=== PATIENT | female | born 1970 | race Caucasian/White ===

== ENCOUNTER → 2017-01-17 | Outpatient (CLI) | payer OTHER ==
[2014-05-16 00:52] VITALS: BP 118/67
--- NOTE | 2017-01-17 16:31 | Diagnostic Imaging Report ---
CAILIN WILLIAM [facility] [address] [address] Report Submission Date: Jan 17, 2017 4:04:26 PM CDT Patient Study Name: ARTUR MACDONALD Date: Jan 17, 2017 2:58:20 PM CDT Modality Type: CR Gender: F Description: LOWER EXTREMITY : 74 Institution: [facility] Physician: CAILIN WILLIAM Examination: Plain film heel History: Discomfort. Findings: 2 views the calcaneus demonstrates normal cortical margins. Inferior and posterior calcaneal spurs. No joint effusion nor other soft tissue abnormality. Impression: Calcaneal spurs. If there is a concern for plantar fasciitis or Achilles tendon inflammation consider obtaining MRI. Electronically signed on Jan 17, 2017 4:04:26 PM CDT by: Saurav DONIS
== END ==
LOC: RAD 14:57
PROVIDERS: ATTEND Physician Assistant
DX: M79.672 Pain in left foot (principal)
CPT/HCPCS: 73650

== ENCOUNTER 2017-06-24 03:40 | Emergency (ER) | payer BC, OTHER ==
[2017-06-24] MEDS: KETOROLAC TROMETHAMINE 30 MG/1ML VIAL IVP ONE (03:50)
[2017-06-24] MEDS: ONDANSETRON HCL/PF 4 MG/ 2ML VIAL IVP ONE (03:52)
[2017-06-24] MEDS: 0.9 % SODIUM CHLORIDE 1,000 ML IV ONE ×2 (03:52→04:50)
[2017-06-24] MEDS: fentaNYL CITRATE/PF 100 MCG/ 2ML AMP ONE (04:00)
[2017-06-24] MEDS: fentaNYL CITRATE/PF 100 MCG/ 2ML AMP IVP ONE ×4 (04:00→06:14)
[2017-06-24] MEDS: TAMSULOSIN HCL 0.4 MG CAP.ER.24H PO ONE ×2 (05:10→05:15)
[2017-06-24 06:23] LABS: APPEARANCE,URINE CLEAR (CLEAR); COLOR,URINE YELLOW (YELLOW); OCCULT BLOOD,URINE TRACE (NEGATIVE); PH URINE 6.5 (5.0 - 8.0); UROBILINOGEN URINE 0.2 Eu (0.2-1.0)
--- NOTE | 2017-06-24 06:26 | Diagnostic Imaging Report ---
BERHANE VELÁSQUEZ ([employer]) - ER [facility] [address] [facility] [address] [place], [place]. [address] Report Submission Date: Jun 24, 2017 5:27:38 AM CDT Patient Study Name: ARTUR MACDONALD Date: Jun 24, 2017 4:41:40 AM CDT Modality Type: CT\SR Gender: F Description: CT ABD/PEL S : 74 Institution: [facility] Physician: BERHANE VELÁSQUEZ ([employer]) - ER CT Abdomen/pelvis without contrast History: RIGHT FLANK PAIN, BLOOD IN URINE, PAIN STARTED APPROX AN HOUR AGO No prior comparison studies Motion artifact. Clear lung bases. No free intraperitoneal air. No acute osseous pathology Cardiomegaly The liver, gallbladder, spleen pancreas are within normal limits. 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 Several pelvic phleboliths are present. No hydronephrosis on the left. Duplicated right renal collecting system, a 3 mm calculus is seen in the distal right ureter at the ureterovesicular junction. There is bladder wall thickening with fat stranding around the urinary bladder. Minimal layering density is noted in the dependent urinary bladder Prominent uterus. Minimal rectal wall thickening, normal appendix. No bowel obstruction. Subcentimeter paraaortic lymph nodes are seen. There is nonspecific fat stranding around the superior mesenteric artery origin. Small hiatal hernia. Impression: 1. 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 2. Fat stranding around the urinary bladder with minimal bladder wall thickening and edema. Minimal layering density within the urinary bladder may be due to presence of blood 3. Double left renal collecting system is seen, it is not clear if the ureters unite distally due to lack of contrast, no left hydronephrosis 4. Cardiomegaly. Normal appendix Electronically signed on Jun 24, 2017 5:27:38 AM CDT by: Amy DONIS
[2017-06-24] MEDS ORDERED: SALINE FLUSH 10 ML DISP.SYRIN IV ONE (06:28)
--- NOTE | 2017-06-24 06:32 | ED Physician Documentation ---
General Adult - HISTORIAN Historian: patient - HPI Stated Complaint: Right Flank Pain Chief Complaint: General Adult Further Comments: yes (47 year old female patient was at work when she suddenly developed onset of 10/10 right flank pain. Pain radiates to groin. No previous episodes.) - ROS CONST: no problems EYES/ENT: none CVS/RESP: none GI/: none MS/SKIN/LYMPH: none NEURO/PSYCH: denies: headache - PAST HX Past History: none Surgeries/Procedures: none Allergies/Adverse Reactions: Allergies Allergy/AdvReac Type Severity Reaction Status Date / Time azithromycin Allergy Verified 06/24/17 06:16 Penicillins Allergy Hives Verified 06/24/17 06:16 Sulfa (Sulfonamide Allergy Verified 06/24/17 06:16 Antibiotics) Home Medications: Ambulatory Orders Medication Instructions Recorded Tamsulosin HCl [Flomax] 0.4 mg PO DAILY #7 cap.er.24h 06/24/17 - SOCIAL HX Smoking History: non-smoker - FAMILY HX Family History: No - VITAL SIGNS Vital Signs: Vital Signs Temp Pulse Resp BP Pulse Ox 54 L 26 H 118/67 99 06/24/17 03:40 06/24/17 03:40 05/16/14 00:47 06/24/17 03:40 - REVIEWED ASSESSMENTS Nursing Assessment Reviewed: Yes Vitals Reviewed: Yes Progress - Progress Progress: Medicated with toradol and 1L NS, unable to void at this time. Trace blood in urine; increased pain - medicated with fentanyl IV. Will progress with CT renal protocol. Titrated fentanyl for pain, 2nd liter NS given, flomax started. Reviewed CT results with patient; encouraged to strain urine, rest, increase po fluids and follow up with urology if pain does not subside. Verbalized understanding. ED Results Lab/Radiology - Lab Results Lab Results: Lab Results 06/24/17 03:51 Urine Color Yellow (YELLOW) Urine Appearance Clear (CLEAR) Urine pH 6.5 (5.0 - 8.0) Ur Specific [place] >=1.030 H (1.010-1.030) Urine Protein Negative mg/dL mg/dL (NEGATIVE) Urine Ketones Negative mg/dL mg/dL (NEGATIVE) Urine Occult Blood Trace (NEGATIVE) Urine Nitrite Negative (NEGATIVE) Urine Bilirubin Negative (NEGATIVE) Urine Urobilinogen 0.2 Eu Eu (0.2-1.0) Ur Leukocyte Esterase Negative (NEGATIVE) Urine Glucose Negative mg/dL mg/dL (NEGATIVE) - Radiology Radiology Impressions: CT Abdomen/pelvis without contrast History: RIGHT FLANK PAIN, BLOOD IN URINE, PAIN STARTED APPROX AN HOUR AGO No prior comparison studies Motion artifact. Clear lung bases. No free intraperitoneal air. No acute osseous pathology Cardiomegaly The liver, gallbladder, spleen pancreas are within normal limits. 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 Several pelvic phleboliths are present. No hydronephrosis on the left. Duplicated right renal collecting system, a 3 mm calculus is seen in the distal right ureter at the ureterovesicular junction. There is bladder wall thickening with fat stranding around the urinary bladder. Minimal layering density is noted in the dependent urinary bladder Prominent uterus. Minimal rectal wall thickening, normal appendix. No bowel obstruction. Subcentimeter paraaortic lymph nodes are seen. There is nonspecific fat stranding around the superior mesenteric artery origin. Small hiatal hernia. Impression: 1. 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 2. Fat stranding around the urinary bladder with minimal bladder wall thickening and edema. Minimal layering density within the urinary bladder may be due to presence of blood 3. Double left renal collecting system is seen, it is not clear if the ureters unite distally due to lack of contrast, no left hydronephrosis 4. Cardiomegaly. Normal appendix Electronically signed on Jun 24, 2017 5:27:38 AM CDT by: Amy Winter - Orders Orders: ED Orders Category Date Time Status Place IV Lock 1T Care 06/24/17 03:51 Active KIDNEY STONE PROTOCOL [CT ABD & PELVIS W/O CON] Stat Exams 06/24/17 04:32 Completed UA MACRO DIP ONLY Stat Lab 06/24/17 03:51 Completed 0.9 % Sodium Chloride [Normal Saline] 1,000 ml Med 06/24/17 03:51 Discontinued IV NOW 0.9 % Sodium Chloride [Normal Saline] 1,000 ml Med 06/24/17 04:50 Discontinued IV Q1H Ketorolac Tromethamine [Toradol] Med 06/24/17 03:50 Discontinued 30 mg IVP NOW ONE Ondansetron HCl/Pf [Zofran 4 mg/2 ml] Med 06/24/17 03:51 Discontinued 4 mg IVP NOW ONE Saline Flush [Normal Saline Flush] Med 06/24/17 06:28 Discontinued 10 ml IV NOW ONE Tamsulosin HCl [Flomax] Med 06/24/17 05:06 Discontinued 0.4 mg PO .STK-MED ONE Tamsulosin HCl [Flomax] Med 06/24/17 05:11 Discontinued 0.4 mg PO NOW ONE fentaNYL CITRATE/PF [Duragesic] Med 06/24/17 03:52 Discontinued 100 mcg .ROUTE .STK-MED ONE fentaNYL CITRATE/PF [Duragesic] Med 06/24/17 03:51 Discontinued 50 mcg IVP NOW ONE fentaNYL CITRATE/PF [Duragesic] Med 06/24/17 04:30 Discontinued 50 mcg IVP NOW ONE fentaNYL CITRATE/PF [Duragesic] Med 06/24/17 05:40 Discontinued 50 mcg IVP NOW ONE fentaNYL CITRATE/PF [Duragesic] Med 06/24/17 06:14 Discontinued 50 mcg IVP NOW ONE General Adult Physical Exam - PHYSICAL EXAM GENERAL APPEARANCE: moderate distress EENT: eye inspection normal, NIVIA RESPIRATORY: no resp distress, chest non-tender, breath sounds normal CVS: reg rate & rhythm, heart sounds normal, equal pulses, no murmur, no gallop , PMI nml, no JVD, no friction rub, 24 ABDOMEN: soft, no organomegaly, normal bowel sounds, no abdominal bruit, no distension BACK: normal inspection, CVA tenderness (R) SKIN: normal color, warm/dry, NR, INT, PAL, DR EXTREMITIES: non-tender, normal range of motion, no evidence of injury, no edema , J, FABRIC STRETCHER NEURO: oriented X3, CN's nml as tested, motor nml, sensation nml, mood/affect nml Discharge Clincal Impression: Renal calculi Prescriptions: Tamsulosin HCl [Flomax] 0.4 mg PO DAILY #7 cap.er.24h Referrals: Kristofer Stout MD [Primary Care Provider] - 2 Days Additional Instructions: supervisor fleshing your Flomax prescription and start it TOMORROW. Increase your fluid intake to at least 64 oz of water a day. No soda or carbonated water. Strain all urine. If the stone is passed, place it in a specimen cup and take it to your primary care physician for analysis. You may take tylenol 1000mg every 4 hours as needed (limit tylenol to 4G per day ) or ibuprofen 600-800mg three times a day as needed for discomfort. Condition: Stable Disposition: 01 HOME, SELF-CARE Decision to Admit: NO Decision Time: 06:32
[2017-06-24 06:33] VITALS: BP 130/68
== END 2017-06-24 06:42 | disposition home or self-care (01) ==
LOC: ED 03:40
DX: N20.0 Calculus of kidney (principal); I51.7 Cardiomegaly; K44.9 Diaphragmatic hernia without obstruction or gangrene
CPT/HCPCS: 74176; 81002; 96365; 96366; 96375; 96376; 99283; J1885; J2405; J3010; J7030; S1016

== ENCOUNTER 2017-09-19 15:17 | Outpatient (CLI) | payer OTHER | END 2017-09-19 15:19 | LOC: POD 15:17 | PROVIDERS: ATTEND Podiatrist | DX: L60.0 Ingrowing nail (principal); M79.674 Pain in right toe(s); M79.675 Pain in left toe(s) ==

== ENCOUNTER 2017-10-03 15:10 | Outpatient (CLI) | payer OTHER | END 2017-10-03 15:12 | LOC: POD 15:10 | PROVIDERS: ATTEND Podiatrist | DX: L60.0 Ingrowing nail (principal); M79.674 Pain in right toe(s); M79.675 Pain in left toe(s) | CPT/HCPCS: 99213 ==

== ENCOUNTER 2018-03-20 17:08 | Outpatient (CLI) | payer OTHER ==
--- NOTE | 2018-03-20 17:49 | Diagnostic Imaging Report ---
JUSTIN TEE [facility] [address] [facility].[address] [address] Report Submission Date: Mar 20, 2018 5:46:23 PM YOUTH CAREER SPECIALIST Patient Study Name: ARTUR MACDONALD Date: Mar 20, 2018 5:25:05 PM YOUTH CAREER SPECIALIST Modality Type: DX Gender: F Description: LOWER EXTREMITY : 74 Institution: [facility] Physician: JUSTIN TEE Left foot, three views History: Ankle pain after fall. Findings: The osseous structures are intact without acute fracture. There is a transverse fracture through the 5th metatarsal base located approximately 1.6 cm from the base without displacement. The remaining osseous structures are normal. Impression: 1. Nondisplaced 5th metatarsal base fracture. Electronically signed on Mar 20, 2018 5:46:23 PM YOUTH CAREER SPECIALIST by: Frantz DONIS
--- NOTE | 2018-03-20 17:49 | Diagnostic Imaging Report ---
JUSTIN TEE [facility] [address] [facility].[address] [address] Report Submission Date: Mar 20, 2018 5:46:27 PM ADMINISTRATIVE FELLOW Patient Study Name: ARTUR MACDONALD Date: Mar 20, 2018 5:21:24 PM ADMINISTRATIVE FELLOW Modality Type: DX Gender: F Description: LOWER EXTREMITY : 74 Institution: [facility] Physician: JUSTIN TEE Left ankle, three views History: Ankle pain after fall. Findings: There is a transverse 5th metatarsal fracture present. Otherwise, the sseous structures are intact without acute fracture. Ankle mortise is normal. No soft tissue swelling. Impression: 1. Fifth metatarsal base fracture. Electronically signed on Mar 20, 2018 5:46:27 PM ADMINISTRATIVE FELLOW by: Frantz DONIS
== END 2018-03-20 17:15 ==
LOC: RAD 17:08
PROVIDERS: ATTEND Nurse Practitioner Family
DX: S92.355A Nondisplaced fracture of fifth metatarsal bone, left foot, initial encounter for closed fracture (principal); W01.0XXA Fall on same level from slipping, tripping and stumbling without subsequent striking against object, initial encounter; Y93.9 Activity, unspecified; Y92.9 Unspecified place or not applicable; Y99.9 Unspecified external cause status
CPT/HCPCS: 73610; 73630

== ENCOUNTER 2018-03-23 11:54 | Outpatient (CLI) | payer OTHER ==
--- NOTE | 2018-03-23 16:40 | Diagnostic Imaging Report ---
ANA BADILLO [facility] [address] [facility] [address] [address] Report Submission Date: Mar 23, 2018 3:44:43 PM CUSTOMER ENGINEERING SPECIALIST Patient Study Name: ARTUR MACDONALD Date: Mar 23, 2018 1:25:25 PM CUSTOMER ENGINEERING SPECIALIST Modality Type: DX Gender: F Description: LOWER EXTREMITY : 74 Institution: [facility] Physician: ANA BADILLO Examination: Plain film left foot History: Pt states she rolled her foot on Friday. Dx with fracture Friday. (Hx) Findings: 3 views of the left foot demonstrates articular degenerative changes. Faint lucency involving the base of the 5th metatarsal. Large calcaneal spurs. Generalized forefoot soft tissue prominence. No joint effusion. Impression: Articular degenerative changes and calcaneal spurs. Soft tissue edema. Nondisplaced fracture base 5th metatarsal. Electronically signed on Mar 23, 2018 3:44:43 PM CUSTOMER ENGINEERING SPECIALIST by: Saurav DONIS
--- NOTE | 2018-04-01 15:08 | OP Clinic Progress Note ---
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 The patient tripped on a brick and rolled her ankle and states that she felt that she broke her foot at that time. She was unable to get up and stand on it. This happened over the end of this last week. She had some x- rays performed demonstrating a fracture at the base of the 5th metatarsal of the left foot. She was placed in a boot and tried to stay off of it as much as she could with a roll about scooter; however, she did do a little bit of walking on it. She does not admit to any fevers, chills, nausea, vomiting, shortness of breath or chest pain at this time. OBJECTIVE: VITAL SIGNS: T: 98.4 degrees Fahrenheit, heart rate: 78, R: 18, BP: 150/99. The patient had her blood pressure checked a couple of times and it was definitely lower the second time but she states that she has not had any blood pressure issues whatsoever. She hopefully will keep a good eye on that still. We had a good discussion about it and she is not worried about it. VASCULAR: DP and PT pulses are 2+ of the left foot. Capillary refill time was less than 3 seconds to the toes of the left foot. There is mild to moderate edema in the left forefoot centrally and laterally especially. DERMATOLOGIC: There is ecchymosis noted at the left 5th metatarsal base area. There is no erythema or other skin changes really noted. There are no open lesions or hyperkeratosis noted. MUSCULOSKELETAL: There is pain on palpation noted at the left 5th metatarsal base area. Range of motion active and passive was deferred at this time due to pain. There are no other gross abnormalities noted of the left foot. NEUROLOGIC: Light touch sensation is intact to all the toes of the left foot. ASSESSMENT: Left 5th metatarsal base fracture, closed, nondisplaced. PROCEDURE #1: [id number] cast application. DESCRIPTION OF PROCEDURE: X-rays were obtained today due to the fact that the patient had walked on her foot in a boot since her last x-rays and I wanted to confirm that there was no motion/displacement of the bone fragment. This would have changed the plan for conservative treatment. The patient was seen earlier in the clinic today and evaluated and sent for x-rays and a separate appointment was set up for the outpatient clinic today in order to apply the cast and make sure that her x-rays were good and that she did not need surgery. The x-rays were evaluated and found to be consistent, and non-displaced, and I feel comfortable going forward with conservative treatment. The cast was applied with 4 layers of fiberglass, 2 white and 2 red. A good substantial amount of cast padding was also applied prior to. The patient was encouraged today to be taking aspirin 81 mg twice daily to help prevent any concern for the development of a blood clot at this time. She will stay on this the entire time she is non-weight bearing on the left lower extremity. She is to continue utilizing the roll about scooter. The patient had no other questions or concerns at this time. PLAN: I am gone in 2 weeks, so we will see the patient again in 1 week at the Outpatient Clinic in the morning on Friday next week to remove the cast and apply a new cast as her swelling should have come down by then and we want to get her a nice new cast before I am gone for 2 weeks. We will not take x-rays at her next visit but will again 2 weeks later after that. We will see her in 1 week and then 2 weeks later on at the [facility] at that visit. It should be noted that there are no signs of compartment syndrome with good blood flow and capillary refill time and soft skin about the forefoot. cc: Dr. Kristofer DONIS
== END 2018-03-23 11:56 ==
LOC: POD 11:54 → RAD 11:54
PROVIDERS: ATTEND Podiatrist Foot & Ankle Surgery
DX: S92.355A Nondisplaced fracture of fifth metatarsal bone, left foot, initial encounter for closed fracture (principal); W18.31XA Fall on same level due to stepping on an object, initial encounter; Y93.01 Activity, walking, marching and hiking; Y92.89 Other specified places as the place of occurrence of the external cause
CPT/HCPCS: 29405; 73630; 99212

== ENCOUNTER 2018-04-27 11:24 | Outpatient (CLI) | payer OTHER ==
--- NOTE | 2018-04-27 15:06 | OP Clinic Progress Note ---
SUBJECTIVE: Shelly Rodarte is a 48-year-old female who is presenting today for follow up of a left 5th metatarsal fracture. The patient states that she has no pain and is doing well. She is concerned that she has almost fallen on the ice a couple of times lately and she is concerned about continuing in the cast until . The patient called and we confirmed that we can take the cast off today and get her into a boot. The patient presented today with a boot that is appropriate. The patient does not admit to any fevers, chills, nausea, vomiting, shortness of breath or chest pain at this time. OBJECTIVE: VITAL SIGNS: BP: 151/77, heart rate 65, R: 16, T: 97.3 degrees Fahrenheit. Pain is zero out of 10. VASCULAR: There are 2+ DP and PT pulses of the left foot. Capillary refill time is less than 3 seconds to the toes of the left foot. Mild to no edema of the left foot. DERMATOLOGIC: There is no ecchymosis or erythema or evidence of any hyperkeratosis or pre-ulcerative lesions of her left foot. MUSCULOSKELETAL: There is zero pain on palpation noted along the left 5th metatarsal. There is no pain with range of motion of the ankle or subtalar joint of the left foot in all directions. There is 4 out of 5 muscle strength about the ankle and subtalar joint of the left foot in all directions. NEUROLOGIC: Light touch sensation is intact to the toes of the left foot. ASSESSMENT: 1. Left 5th metatarsal fracture, subsequent encounter. 2. Healing fracture. PROCEDURE #1: [id number] cast removal. This was performed with a cast saw without incident. The patient tolerated the procedure well. RADIOLOGY: X-rays of the left foot, 3 views, were ordered and the patient was sent to obtain immediately in order to confirm final healing of the fracture site. We will visualize the images and let the patient know what we see on x-ray once they are accomplished today. PLAN: The plan is to go forward in a boot, which the patient had applied today. She may ambulate and weight bear as tolerated in that boot. The patient was notified that we will get her a prescription for an ankle brace and she may obtain an ankle brace from [employer] and begin utilizing that instead of the boot once I clear her after looking at the x-rays today. We will give her that prescription once she is cleared. The patient understands that this is the plan. We discussed possible physical therapy due to how she will feel some weakness in her left lower extremity. She admits that she already feels a little weak in her ankle when standing in the boot but states that she has no pain at all. She would like to see how she does today before considering physical therapy. Return to clinic as needed. We will talk frequently to see how she is doing unofficially and as needed, we will have her come in to see me. We will likely see her in about a month, however, to make sure she is doing well with an ankle brace. We will hopefully get her out of the brace at that point. JEWELS
--- NOTE | 2018-04-27 18:01 | Diagnostic Imaging Report ---
ANA BADILLO [facility] [address] [facility] [address] [address] Report Submission Date: Apr 27, 2018 5:32:32 PM COMMERCIAL REPORTER Patient Study Name: ARTUR MACDONALD Date: Apr 27, 2018 11:45:51 AM COMMERCIAL REPORTER Modality Type: DX Gender: F Description: LOWER EXTREMITY : 74 Institution: [facility] Physician: ANA BADILLO Examination: Plain film left foot History: F/U 5TH METARSAL FX (Hx) Comparison exam: 30 March 2018 Findings: 3 views of the left foot demonstrates articular degenerative changes. Previous faint lucency involving the base of the 5th metatarsal no longer visualized. Large calcaneal spurs. No joint effusion. Impression: Articular degenerative changes and calcaneal spurs. Healed fracture base 5th metatarsal. Electronically signed on Apr 27, 2018 5:32:32 PM COMMERCIAL REPORTER by: Saurav DONIS
== END 2018-04-27 11:40 ==
LOC: POD 11:24
PROVIDERS: ATTEND Podiatrist Foot & Ankle Surgery
DX: S92.355D Nondisplaced fracture of fifth metatarsal bone, left foot, subsequent encounter for fracture with routine healing (principal); W18.49XD Other slipping, tripping and stumbling without falling, subsequent encounter
CPT/HCPCS: 73630

== ENCOUNTER 2019-01-01 09:08 | Outpatient (CLI) | payer OTHER ==
--- NOTE | 2019-01-02 00:11 | Diagnostic Imaging Report ---
ASHLI CALDERA [facility] [address] [facility] [address] [place], [place]. [address] Report Submission Date: Jan 01, 2019 10:47:50 AM CDT Patient Study Name: ARTUR MACDONALD Date: Jan 01, 2019 10:10:29 AM CDT Modality Type: DX Gender: F Description: PELVIS AP 1 OR 2 VIEWS : 74 Institution: [facility] Physician: ASHLI CALDERA Examination: Plain film pelvis History: SUBLUXATION OF PELVIS Comparison exams: None provided Findings: Single view of the pelvis demonstrate normal cortical margins. Acetabular spurring. No fracture. No dislocation. Superior and inferior pubic rami and iliac wings are without abnormality. Pelvic phleboliths. Impression: Articular degenerative changes. No acute osseous process. Electronically signed on Jan 01, 2019 10:47:50 AM CDT by: Saurav DONIS
--- NOTE | 2019-01-02 00:12 | Diagnostic Imaging Report ---
ASHLI CALDERA [facility] [address] [facility] [address] [place] [address]. [address] Report Submission Date: Jan 01, 2019 10:49:41 AM CDT Patient Study Name: ARTUR MACDONALD Date: Jan 01, 2019 10:10:29 AM CDT Modality Type: DX Gender: F Description: C SPINE 2 OR 3 VIEWS : 74 Institution: [facility] Physician: ASHLI CALDERA Examination: Cervical spine History: SUBLUXATION Comparison exams: None available Findings: 3 views of the cervical spine demonstrate normal height and alignment. No anterior compression. No abnormal listhesis. No odontoid abnormality. No prevertebral abnormality Impression: No acute osseous abnormality Electronically signed on Jan 01, 2019 10:49:41 AM CDT by: Saurav DONIS
--- NOTE | 2019-01-02 00:12 | Diagnostic Imaging Report ---
ASHLI CALDERA [facility] [address] [facility] [address] [place] [address]. [address] Report Submission Date: Jan 01, 2019 10:48:59 AM CDT Patient Study Name: ARTUR MACDONALD Date: Jan 01, 2019 10:10:29 AM CDT Modality Type: DX Gender: F Description: L SPINE 6 VIEWS : 74 Institution: [facility] Physician: ASHLI CALDERA Examination: Plain film lumbar spine History: SUBLUXATION Findings: 5 views of the lumbar spine demonstrate normal height. No anterior compression. Oblique views demonstrate facet degenerative. Curvature to left. No soft tissue abnormalities. Impression: Curvature and lower lumbar degenerative changes. No vertebral body compression deformity. Electronically signed on Jan 01, 2019 10:48:59 AM CDT by: Saurav DONIS
== END 2019-01-01 10:08 ==
LOC: OUT 09:08
PROVIDERS: ATTEND Chiropractor
DX: M99.05 Segmental and somatic dysfunction of pelvic region (principal); M99.06 Segmental and somatic dysfunction of lower extremity; M47.27 Other spondylosis with radiculopathy, lumbosacral region; M47.21 Other spondylosis with radiculopathy, occipito-atlanto-axial region
CPT/HCPCS: 72040; 72170; 99202

== ENCOUNTER 2019-01-15 08:14 | Outpatient (CLI) | payer OTHER ==
[2019-01-28 07:21] LABS: BASOPHILS % 0.3 % (0.0-1.5); NEUTROPHILS # 3.9 # k/uL (1.4-7.7); eGFR (Non-African) > 60
== END 2019-01-15 09:00 ==
LOC: OUT 08:14
PROVIDERS: ATTEND Nurse Practitioner Family
DX: M54.5 Low back pain (principal)
CPT/HCPCS: 36415; 80053; 85025; 93005

== ENCOUNTER 2019-01-19 11:31 | Day surgery (SDC) | payer OTHER ==
[~2019-01-19 11:31] MED LIST: DEXAMETHASONE SODIUM PHOSPHATE 10 MG/ML VIAL ONE; KETOROLAC TROMETHAMINE 30 MG/1ML VIAL ONE; LACTATED RINGERS 1,000 ML IV.SOLN IV ONE; LIDOCAINE HCL 2% PF 100MG/5ML VIAL IJ ONE; MIDAZOLAM HCL 2 MG/2 ML VIAL ONE; ONDANSETRON HCL/PF 4 MG/ 2ML VIAL ONE; PROPOFOL 200 MG/20 ML VIAL IV ONE; SCOPOLAMINE HYDROBROMIDE 1.5MG/72HR PATCH TD ONE; SEVOFLURANE 250 ML LIQUID IH ONE; fentaNYL CITRATE/PF 100 MCG/2 ML INJ. ONE
== END 2019-01-19 13:55 | disposition home or self-care (01) ==
LOC: OPSURG 11:31
PROVIDERS: ATTEND Specialist
DX: M99.05 Segmental and somatic dysfunction of pelvic region (principal); M99.06 Segmental and somatic dysfunction of lower extremity; M70.61 Trochanteric bursitis, right hip; M47.27 Other spondylosis with radiculopathy, lumbosacral region; M47.21 Other spondylosis with radiculopathy, occipito-atlanto-axial region
CPT/HCPCS: 22505; 27198; 27275; A9270; J1885; J2001; J2250; J2405; J2704; J3010; J7120

== ENCOUNTER 2019-01-20 11:28 | Day surgery (SDC) | payer OTHER ==
[~2019-01-20 11:28] MED LIST changes: -KETOROLAC TROMETHAMINE 30 MG/1ML VIAL ONE; -SCOPOLAMINE HYDROBROMIDE 1.5MG/72HR PATCH TD ONE; -SEVOFLURANE 250 ML LIQUID IH ONE
== END 2019-01-20 13:45 | disposition home or self-care (01) ==
LOC: OPSURG 11:28
PROVIDERS: ATTEND Specialist
DX: M99.05 Segmental and somatic dysfunction of pelvic region (principal); M99.06 Segmental and somatic dysfunction of lower extremity; M70.61 Trochanteric bursitis, right hip; M47.27 Other spondylosis with radiculopathy, lumbosacral region; M47.21 Other spondylosis with radiculopathy, occipito-atlanto-axial region
CPT/HCPCS: 22505; 27198; 27275; J2001; J2250; J2405; J2704; J3010; J7120

== ENCOUNTER 2019-01-21 11:29 | Day surgery (SDC) | payer OTHER ==
[~2019-01-21 11:29] MED LIST changes: +KETOROLAC TROMETHAMINE 30 MG/1ML VIAL ONE; +SEVOFLURANE 250 ML LIQUID IH ONE
== END 2019-01-21 13:10 | disposition home or self-care (01) ==
LOC: OPSURG 11:29
PROVIDERS: ATTEND Specialist
DX: M99.05 Segmental and somatic dysfunction of pelvic region (principal); M99.06 Segmental and somatic dysfunction of lower extremity; M70.61 Trochanteric bursitis, right hip; M47.27 Other spondylosis with radiculopathy, lumbosacral region; M47.21 Other spondylosis with radiculopathy, occipito-atlanto-axial region
CPT/HCPCS: 22505; 27198; 27275; J1885; J2001; J2250; J2405; J2704; J3010; J7120